=== PATIENT | male | born 1965 | race Caucasian/White ===

== ENCOUNTER → 2017-09-08 | Outpatient (CLI) | payer OTHER | LOC: BRMIMAGING 09:09 | PROVIDERS: ATTEND Nurse Practitioner | DX: R92.8 Other abnormal and inconclusive findings on diagnostic imaging of breast (principal) | CPT/HCPCS: 76641-PO ==

== ENCOUNTER 2017-10-20 07:40 | Day surgery (SDC) | payer OTHER ==
--- NOTE | 2017-10-19 20:27 | GHP ---
[f rep st] PREOP HISTORY AND PHYSICAL DATE OF ADMISSION: 10/20/2017 PREOPERATIVE DIAGNOSIS: Incarcerated umbilical hernia. HISTORY OF PRESENT ILLNESS: The patient is a 52-year-old man who presented to the clinic complaining of an umbilical hernia. It has been present for 15 years. Over the past 4 months, it has been incr easing in size and interfering with work. It is becoming more bothersome when he bends over and lift s. He reports pain and nausea when he is unable to reduce the hernia. He reports pain as a dull pre ssure that is 2/10 on the pain scale. He uses ibuprofen and Tylenol. PAST MEDICAL HISTORY: Basal cell carcinoma of chest, GERD, hypertension. PAST SURGICAL HISTORY: Left arthroscopic shoulder surgery, right knee meniscus repair. ALLERGIES: No known drug allergies. FAMILY HISTORY: None significant. SOCIAL HISTORY: Denies tobacco, alcohol or recreational drug use. REVIEW OF SYSTEMS: 10-point review of systems negative aside from HPI. PHYSICAL EXAMINATION: GENERAL: Well-developed, well-nourished man in no acute distress, obese. MOHINDER NT: Normocephalic, atraumatic. No hearing deficits. Pupils equal and round. No scleral icterus. Mucous membranes moist. NECK: Trachea midline. RESPIRATORY: Clear to auscultation bilaterally. No increased work of breathing. CARDIOVASCULAR: Regular rate and rhythm and rhythm. No peripheral ed yvonne. ABDOMEN: Soft, nondistended, nontender. Nonreducible umbilical hernia. Nontender to palpatio n. SKIN: Warm and dry. PSYCH: Mood and affect normal. NEURO: Grossly intact. IMPRESSION AND PLAN: A 52-year-old man with an incarcerated umbilical hernia. He will go to the ope rating room for open umbilical hernia repair with mesh. We discussed risks of surgery, including but not limited to heart attack, stroke, blood clots, . We discussed risk of infection, bleeding, damage to surrounding structures, recurrence. He understands the risks and would like to proceed. I anticipate this to be an outpatient procedure. He will receive antibiotics on-call to the operating room. /[id number]/MODL
[2017-10-20] MEDS ORDERED: ceFAZolin 2 GM/SWFI 2 GM/20 ML SYR IVP ONE (07:56)
[2017-10-20] MEDS ORDERED: LR 1,000 ML IV ONE (07:59)
[2017-10-20] MEDS ORDERED: BUPIVACAINE 0.5% 30 ML SDV ONE (08:34)
--- NOTE | 2017-10-20 08:55 | PDHPUP ---
History & Physical Update H&P update statement: This history and physical update is based on an assessment of the patient which was completed after admission or registration (within 24 hours), but prior to the surgery/procedure. H&P update: H&P reviewed & patient examined, no change in patient's condition since H&P completed
[2017-10-20] MEDS ORDERED: ceFAZolin 2 GM/SWFI 20 ML SYR IVP ONE (09:06)
--- NOTE | 2017-10-20 09:15 | PDANEPAE ---
ANE History of Present Illness 52 yo male with umbilical hernia for open repair. ANE Past Medical History - Cardiovascular History Hx Hypertension: Yes Hx Arrhythmias: No Hx Chest Pain: No Hx Coronary Artery / Peripheral Vascular Disease: No Hx CHF / Valvular Disease: No Hx Palpitations: No Cardiovascular History Comment: No CP/SOB - Pulmonary History Hx COPD: No Hx Asthma/Reactive Airway Disease: No Hx Recent Upper Respiratory Infection: No Hx Oxygen in Use at Home: No Hx Sleep Apnea: No Sleep Apnea Screening Result - Last Documented: Positive - Neurologic History Hx Cerebrovascular Accident: No Hx Seizures: No Hx Dementia: No - Endocrine History Hx Diabetes: No Hypothyroid: No Hyperthyroid: No Obesity: mild - Renal History Hx Renal Disorders: No - Liver History Hx Hepatic Disorders: No - Neurological & Psychiatric Hx Hx Neurological and Psychiatric Disorders: No - Cancer History Hx Cancer: Yes Cancer History Comment: skin ca - Congenital Disorder History Hx Congenital Disorders: No - GI History GERD: moderate Hx Gastrointestinal Disorders: Yes Gastrointestinal History Comment: reflux - Other Health History Other Health History: none - Chronic Pain History Chronic Pain: No (bilat knee pain) - Surgical History Prior Surgeries: knee scope ANE Review of Systems Review of systems is: negative Review of Systems: - Exercise capacity METS (RN): 5 METS - Systems Constitutional: Reports: no symptoms Cardiac: Reports: no symptoms Respiratory: Reports: no symptoms ANE Patient History - Allergies Allergies/Adverse Reactions: No Known Allergies Allergy (Unverified 10/13/17 15:25) - Home Medications Home Medications: Ibuprofen 10/13/17 [Last Taken Unknown] Lisinopril 10/13/17 [Last Taken 10/19/17] Multivitamins 10/13/17 [Last Taken 10/15/17] Nexium 10/13/17 [Last Taken 10/20/17] - NPO status NPO Since - Liquids (Date): 10/20/17 NPO Since - Liquids (Time): 05:30 NPO Since - Solids (Date): 10/19/17 NPO Since - Solids (Time): 20:00 - Anes Hx Anes Hx: no prior problems - Smoking Hx Smoking Status: Never smoked Marijuana use: No - Alcohol Use Alcohol Use: Rarely - Family Anes Hx Family Anes Hx: neg - N/A Family Hx Anesthesia Complications: none ANE Labs/Vital Signs - Vital Signs Blood Pressure: 135/94 Heart Rate: 81 Respiratory Rate: 14 O2 Sat (%): 94 Height: 175.26 cm Weight: 108.862 kg ANE Physical Exam - Airway Neck exam: FROM Mallampati Score: Class 2 Mouth exam: normal dental/mouth exam - Pulmonary Pulmonary: clear to auscultation - Cardiovascular Cardiovascular: regular rate and rhythym - ASA Status ASA Status: II ANE Anesthesia Plan Anesthesia Plan: GA w LMA
[2017-10-20] MEDS ORDERED: fentaNYL 100 MCG/2 ML INJ ONE ×2 (10:21→11:47)
[2017-10-20] MEDS ORDERED: PROPOFOL 200 MG/20 ML VIAL ONE (10:21)
[2017-10-20] MEDS ORDERED: KETOROLAC 30 MG/1 ML SDV ONE (11:09)
[2017-10-20] MEDS ORDERED: LIDOCAINE 2% 5 ML SDV ONE (11:09)
[2017-10-20] MEDS ORDERED: DEXAMETHASONE 4 MG/ML VIAL ONE (11:09)
--- NOTE | 2017-10-20 11:27 | POSTOPPROG ---
Post Op Note Date of Operation: 10/20/17 Surgeon: Vandana Bonds Resident Manager: anisa Anesthesiologist: ornelas Anesthesia: GET(General Endotracheal) Pre-op Diagnosis: incarcerated umbilical hernia Post-op Diagnosis: same Indication: 52yo M symptomatic umbilical hernia Procedure: open umbilical hernia repair with mesh Findings: large incarcerated umbilical hernia Inf/Abcess present in the surg proc area at time of surgery?: No EBL: Minimal
[2017-10-20] MEDS ORDERED: NALOXONE HCL 0.4 MG/ML INJ IVP PRN (11:33)
[2017-10-20] MEDS ORDERED: LR 500 ML IV PRN (11:33)
[2017-10-20] MEDS ORDERED: ONDANSETRON 4 MG/2 ML VIAL IVP PRN (11:33)
[2017-10-20] MEDS ORDERED: HYDROCODONE/APAP 5/325 TAB PO PRN (11:33)
[2017-10-20] MEDS ORDERED: ALBUTEROL 3 ML DEYVIAL IH PRN (11:33)
--- NOTE | 2017-10-20 11:34 | POSTANESTH ---
Post Anesthetic Evaluation Cardiovascular Status: Normal, Stable Respiratory Status: Normal, Stable Level of Consciousness/Mental Status: Can Participate in Eval, Mildly Sleepy, Arousable Pain Control: Adequate, Prn Tx Ordered Nausea/Vomiting Control: Adequate, Prn Tx Ordered Complications Possibly Related to Anesthesia: None Noted
[2017-10-20] MEDS: fentaNYL 100 MCG/2 ML INJ IVP PRN ×2 (11:47→12:10)
[2017-10-20 12:36] VITALS: BP 119/89
[2017-10-20] MEDS ORDERED: HYDROCODONE/APAP 5/325 TAB ONE (13:18)
--- NOTE | 2017-10-23 17:32 | GOP ---
[f rep st] OPERATIVE REPORT DATE OF OPERATION: 10/20/2017 SURGEON: Vandana Bonds MD [employer] MANAGER: Alena Perez, DILIP ANESTHESIA: General. ANESTHESIOLOGIST: Kiley Rutherford MD. PREOPERATIVE DIAGNOSIS: Incarcerated umbilical hernia. POSTOPERATIVE DIAGNOSIS: Incarcerated umbilical hernia. PROCEDURE PERFORMED: Open umbilical hernia repair with mesh. FINDINGS: Bowel entrapped in the hernia defect. It was viable. SPECIMENS: None. ESTIMATED BLOOD LOSS: 20. INDICATIONS: The patient is a 52-year-old man with a non-reducible umbilical hernia. DESCRIPTION OF PROCEDURE: Patient was brought into the operating room, placed supine on the table an d general anesthesia was administered. His abdomen was prepped and draped in the usual sterile fashi on. I infiltrated all sites with 0.5% Marcaine prior to making incisions. I made an incision beneat h his umbilicus. I dissected down through the subcutaneous tissues. I immediately encountered bowel . Using Metzenbaum scissors, I carefully removed the skin away from the bowel. I then carefully con tinued my dissection to identify the fascia. I had to enlarge the fascial defect in order to reduce the bowel. Once I reduced the bowel, I was able to fully clear the peritoneum both above and below t he fascia. I then placed a 6.4 cm composite mesh intraabdominal and sutured this into place with 0 S urgilon. I closed the defect closed with 0 PDS. I created a quincy umbilicus with 3-0 Vicryl. I close d skin with 3-0 Vicryl followed by 4-0 Monocryl. Mastisol, Steri-Strips, sterile dressing were appli ed. He was awakened in the operating room, extubated, transferred to PACU in stable condition. /[id number]/MODL
== END 2017-10-20 13:35 | disposition home or self-care (01) ==
LOC: FSGY 07:40
PROVIDERS: ATTEND Surgery
PROC: 0WUF0JZ Supplement Abdominal Wall with Synthetic Substitute, Open Approach (ICD-10-PCS; principal; 2017-10-20 09:30)
DX: K42.0 Umbilical hernia with obstruction, without gangrene (principal); K21.9 Gastro-esophageal reflux disease without esophagitis; I10 Essential (primary) hypertension
CPT/HCPCS: C1781; J0690; J1100; J1885; J2704; J3010